=== PATIENT | female | born 1970 | race American Indian/Alaskan Native ===

== ENCOUNTER 2021-03-09 02:26 | Emergency (ER) | payer BC ==
[2021-03-09 03:08] VITALS: BP 182/99
[2021-03-09] MEDS ORDERED: dexAMETHasone 20 MG/5 ML VIAL IM ONE (06:41)
[2021-03-09] MEDS ORDERED: diphenhydrAMINE 25 MG CAP PO ONE (06:41)
[2021-03-09] MEDS ORDERED: FAMOTIDINE 20 MG TAB PO ONE (06:41)
--- NOTE | 2021-03-09 06:47 | Emergency Department Report ---
ED General Adult HPI - General Chief complaint: Allergic Reaction Stated complaint: THROAT CLOSING AFTER TAKING MEDS Time Seen by Provider: 03/09/21 06:40 Source: patient Mode of arrival: Ambulatory Limitations: No Limitations - History of Present Illness Initial comments: Patient 50-year-old -[place] female with history of hypertension and asthma who presents to the ED states she took [id number] ibuprofen on yesterday started to have allergic reaction including tongue swelling and itching. Patient denies history of same, patient has not taken [id number] Benadryl or other medications for allergic reaction. There is no chest pain, dizziness, nausea or vomiting, shortness of breath. Patient states symptoms are exacerbated by attempted swallowing however patient is tolerating p.o. intake including dinner meal and p.o. liquids at this time. Pt drove self to ed, patient appears non toxic, with no acute distress at this time, she is a/o x 3, ambulatory with steady gait, there is no wheezing, no stridor, no dysphagia , no tongue swelling at this time. - Related Data Home Medications Medication Instructions Recorded Confirmed Last Taken amLODIPine [Norvasc] 5 mg PO DAILY 08/08/15 08/08/15 08/08/15 hydroCHLOROthiazide [Hctz] 12.5 mg PO QDAY 08/08/15 08/08/15 08/08/15 lisinopriL [Zestril] 20 mg PO QDAY 08/08/15 08/08/15 08/08/15 Previous Rx's Medication Instructions Recorded Last Taken Type Cyclobenzaprine [Flexeril] 10 mg PO TID PRN #20 tablet 08/09/15 Unknown Rx oxyCODONE /ACETAMINOPHEN [Percocet 2 tab PO Q6HR PRN #20 tablet 08/09/15 Unknown Rx 5/325] EPINEPHrine [Epipen 2-Anibal] 0.3 mg IJ PRN PRN #1 auto.injct 03/09/21 Unknown Rx Famotidine [Pepcid] 20 mg PO BID 7 Days #15 tablet 03/09/21 Unknown Rx dexAMETHasone [Decadron] 4 mg PO BID 3 Days #6 tablet 03/09/21 Unknown Rx diphenhydrAMINE [Benadryl CAP] 25 mg PO Q8HR PRN #30 capsule 03/09/21 Unknown Rx Allergies Allergy/AdvReac Type Severity Reaction Status Date / Time No Known Allergies Allergy Verified 08/08/15 20:04 ED Review of Systems ROS: Stated complaint: THROAT CLOSING AFTER TAKING MEDS Other details as noted in HPI Constitutional: denies: chills, fever Eyes: denies: eye pain, eye discharge, vision change ENT: congestion. denies: throat pain Respiratory: denies: cough, shortness of breath, wheezing Cardiovascular: denies: chest pain, palpitations Endocrine: no symptoms reported Gastrointestinal: denies: abdominal pain, nausea, diarrhea Genitourinary: denies: urgency, dysuria, discharge Musculoskeletal: denies: back pain, joint swelling, arthralgia Skin: denies: rash, lesions Neurological: denies: headache, weakness, paresthesias Psychiatric: denies: anxiety, depression Hematological/Lymphatic: denies: easy bleeding, easy bruising ED Past Medical Hx - Past Medical History Previous Medical History?: Yes Hx Hypertension: Yes Hx Asthma: Yes Additional medical history: Morbid Obesity. High Cholesterol - Surgical History Past Surgical History?: No - Social History Smoking Status: Never Smoker Substance Use Type: None - Medications Home Medications: Home Medications Medication Instructions Recorded Confirmed Last Taken Type amLODIPine [Norvasc] 5 mg PO DAILY 08/08/15 08/08/15 08/08/15 History hydroCHLOROthiazide [Hctz] 12.5 mg PO QDAY 08/08/15 08/08/15 08/08/15 History lisinopriL [Zestril] 20 mg PO QDAY 08/08/15 08/08/15 08/08/15 History Cyclobenzaprine [Flexeril] 10 mg PO TID PRN #20 tablet 08/09/15 Unknown Rx oxyCODONE /ACETAMINOPHEN [Percocet 2 tab PO Q6HR PRN #20 tablet 08/09/15 Unknown Rx 5/325] EPINEPHrine [Epipen 2-Anibal] 0.3 mg IJ PRN PRN #1 auto.injct 03/09/21 Unknown Rx Famotidine [Pepcid] 20 mg PO BID 7 Days #15 tablet 03/09/21 Unknown Rx dexAMETHasone [Decadron] 4 mg PO BID 3 Days #6 tablet 03/09/21 Unknown Rx diphenhydrAMINE [Benadryl CAP] 25 mg PO Q8HR PRN #30 capsule 03/09/21 Unknown Rx ED Physical Exam - General Limitations: No Limitations General appearance: alert, in no apparent distress - Head Head exam: Present: atraumatic, normocephalic - Eye Eye exam: Present: PERRL, EOMI Pupils: Present: normal accommodation - Expanded ENT Exam Expanded Ear exam: Present: normal external inspection Throat exam: Positive: other (uvula midline no exudate, no lesions, no swelling, airway is patent , no stridor ). Negative: tonsillar erythema, tonsillomegaly, tonsillar exudate, R peritonsillar mass, L peritonsillar mass - Neck Neck exam: Present: normal inspection, full ROM. Absent: lymphadenopathy, thyromegaly - Respiratory Respiratory exam: Present: normal lung sounds bilaterally. Absent: respiratory distress, wheezes, rales, rhonchi, stridor - Cardiovascular Cardiovascular Exam: Present: regular rate, normal rhythm, normal heart sounds. Absent: systolic murmur, diastolic murmur, rubs, gallop - GI/Abdominal GI/Abdominal exam: Present: soft, normal bowel sounds. Absent: distended, tenderness - Rectal Rectal exam: Present: deferred - Extremities Exam Extremities exam: Present: normal inspection, full ROM - Back Exam Back exam: Present: normal inspection, full ROM. Absent: tenderness - Neurological Exam Neurological exam: Present: alert, oriented X3, CN II-XII intact, normal gait - Expanded Neurological Exam Expanded Patient oriented to: Present: person, place, time Speech: Present: fluid speech Cranial nerves: Gag Reflex: Normal, Tongue Deviation: Normal Best Eye Response (Alyse): (4) open spontaneously Best Motor Response (Alyse): (6) obeys commands Best Verbal Response (Alyse): (5) oriented [place] Total: 15 - Psychiatric Psychiatric exam: Present: normal affect, normal mood - Skin Skin exam: Present: warm, dry, intact, normal color. Absent: rash ED Course Vital Signs 03/09/21 03:03 Temperature 98.3 F Pulse Rate 85 Respiratory 18 Rate Blood Pressure 182/99 O2 Sat by Pulse 100 Oximetry ED Medical Decision Making - Medical Decision Making Patient appears well nontoxic, and in no acute distress, there is no wheezing no stridor, airway is patent respirations are even and nonlabored, there is no chest pain, no nausea or vomiting. Patient is tolerating p.o. intake without symptoms. Plan stop [id number] ibuprofen, patient given epinephrine injection teaching at this time, DC to home with prescriptions, follow-up with primary care doctor in 2 to 3 days. Return to emergency should symptoms return or worsen. Patient verbalized agreement and understanding with discharge plan. Patient will be DC to home in stable condition at this time. Critical care attestation.: If time is entered above; I have spent that time in minutes in the direct care of this critically ill patient, excluding procedure time. ED Disposition Clinical Impression: Allergic reaction Qualifiers: Encounter type: initial encounter Qualified Code(s): T78.40XA - Allergy, unspecified, initial encounter Medication reaction Qualifiers: Encounter type: initial encounter Qualified Code(s): T50.905A - Adverse effect of unspecified drugs, medicaments and biological substances, initial encounter Disposition: DC-01 TO HOME OR SELFCARE Is pt being admited?: No Does the pt Need Aspirin: No Condition: Stable Instructions: Allergies, Adult, [id number], Drug Allergy Additional Instructions: Stop taking albuterol, take prescribed medicines as prescribed only. Follow-up with your primary care doctor in 2 to 3 days. Return to emergency should symptoms worsen or return. Prescriptions: diphenhydrAMINE [Benadryl CAP] 25 mg PO Q8HR PRN #30 capsule PRN Reason: allergies dexAMETHasone [Decadron] 4 mg PO BID 3 Days #6 tablet EPINEPHrine [Epipen 2-Anibal] 0.3 mg IJ PRN PRN #1 auto.injct PRN Reason: severe allergy symptoms Famotidine [Pepcid] 20 mg PO BID 7 Days #15 tablet Referrals: FRANCOISE VALDERRAMA MD [Staff Physician] - 3-5 Days Forms: Work/School Release Form(ED) Time of Disposition: 06:56
--- NOTE | 2021-03-09 06:48 | Emergency Department Report ---
HPI - General Chief Complaint: Allergic Reaction Time Seen by Provider: 03/09/21 06:40 ED Past Medical Hx - Past Medical History Previous Medical History?: Yes Hx Hypertension: Yes Hx Asthma: Yes Additional medical history: Morbid Obesity. High Cholesterol - Surgical History Past Surgical History?: No - Social History Smoking Status: Never Smoker Substance Use Type: None - Medications Home Medications: Home Medications Medication Instructions Recorded Confirmed Last Taken Type amLODIPine [Norvasc] 5 mg PO DAILY 08/08/15 08/08/15 08/08/15 History hydroCHLOROthiazide [Hctz] 12.5 mg PO QDAY 08/08/15 08/08/15 08/08/15 History lisinopriL [Zestril] 20 mg PO QDAY 08/08/15 08/08/15 08/08/15 History Cyclobenzaprine [Flexeril] 10 mg PO TID PRN #20 tablet 08/09/15 Unknown Rx oxyCODONE /ACETAMINOPHEN [Percocet 2 tab PO Q6HR PRN #20 tablet 08/09/15 Unknown Rx 5/325] ED Review of Systems ROS: Stated complaint: THROAT CLOSING AFTER TAKING MEDS Other details as noted in HPI Physical Exam - Physical Exam Vital Signs: Vital Signs 03/09/21 03:03 Temperature 98.3 F Pulse Rate 85 Respiratory 18 Rate Blood Pressure 182/99 O2 Sat by Pulse 100 Oximetry ED Course Vital Signs 03/09/21 03:03 Temperature 98.3 F Pulse Rate 85 Respiratory 18 Rate Blood Pressure 182/99 O2 Sat by Pulse 100 Oximetry Critical care attestation.: If time is entered above; I have spent that time in minutes in the direct care of this critically ill patient, excluding procedure time. ED Disposition Condition: Stable Referrals: PRIMARY CARE, [Primary Care Provider] - 3-5 Days
== END 2021-03-09 07:14 | disposition home or self-care (01) ==
LOC: ED 02:26
DX: T78.40XA Allergy, unspecified, initial encounter (principal); T50.905A Adverse effect of unspecified drugs, medicaments and biological substances, initial encounter; Y92.89 Other specified places as the place of occurrence of the external cause
CPT/HCPCS: 96372; 99282; J1100